=== PATIENT | male | born 1965 | race Caucasian/White ===

== ENCOUNTER 2018-11-09 17:46 | Emergency (ER) | payer BC ==
[2018-11-09 18:05] VITALS: RESP 18
--- NOTE | 2018-11-09 18:23 | ED ---
General Adult HPI - General Chief complaint: Extremity Problem,Nontraumatic Stated complaint: Foot pain Time Seen by Provider: 11/09/18 18:09 Source: patient, RN notes reviewed Mode of arrival: ambulatory Limitations: no limitations - History of Present Illness Initial comments: Chief complaint and history of present illness this is a 53-year-old male r eports when he awakened today he had pain to his right mid foot. Pain when he walks. Does not remember any specific injury. He does state that he would did a lot of dancing during the pelvic crawl yesterday. To his knowledge he had no direct injury. - Related Data Home Medications Medication Instructions Recorded Confirmed Naproxen Sodium [Aleve] 440 mg PO Q8HR PRN 11/09/18 11/09/18 Previous Rx's Medication Instructions Recorded Ibuprofen [Motrin] 600 mg PO Q6HR PRN #20 tab 11/09/18 Allergies Allergy/AdvReac Type Severity Reaction Status Date / Time No Known Allergies Allergy Verified 11/09/18 19:02 Review of Systems ROS Statement: Those systems with pertinent positive or pertinent negative responses have been documented in the HPI. Patient denies any other problems no headache chest pain shortness breath GI/ problems denies any neuro deficits. All systems were otherwise reviewed. The patient did not get a flu shot this year. Otherwise his immunizations are up-to-date. Patient denies any chronic medical problems. Surgery; he's had an umbilical hernia repair, left anterior cruciate ligament repair. Patient denies smoking. Drinks alcohol socially. He does have increased walking on the job. ROS Other: All systems not noted in ROS Statement are negative. Past Medical History Past Medical History: No Reported History History of Any Multi-Drug Resistant Organisms: None Reported Past Surgical History: Hernia Repair Past Psychological History: No Psychological Hx Reported Smoking Status: Never smoker Past Alcohol Use History: None Reported, Occasional Past Drug Use History: None Reported General Exam - General Exam Comments Initial Comments: Physical examination pertinent to the patient's visit. Patient denies any other problems other than discomfort to the mid right foot. The patient's vital signs show temperature 98.6 pulse 108 respiratory rate 18 pulse ox 90% room air blood pressure 143/94. The patient denies having history of high blood pressure and recently was seen by his doctor and his blood pressure was normal there. He was advised to get rechecked have stays high revisit with his physician as necessary. Examination of the right leg finds no pain to the hip or knee. Patient has no pain with the movement of the ankle or the toes. Mild redness of the dorsal surface. Neurovascular status to the foot is intact. Range of motion is near normal. Palpation causes mild discomfort. Standing causes pain to the mid foot. No evidence of any cellulitis. No athlete's foot, general foot exam otherwise normal. Significant complaint of pain with standing and ambulating. Limitations: no limitations Course Vital Signs 11/09/18 17:57 Temperature 98.6 F Pulse Rate 108 H Respiratory 18 Rate Blood Pressure 143/94 O2 Sat by Pulse 98 Oximetry Medical Decision Making - Medical Decision Making Medical decision making; this is a 53-year-old male with a complaint of pain to his right foot after a night of dancing and pub crawl. Cannot think of any specific direct injury. X-ray of the right foot was done and 3 views. Reviewed by radiologist. His findings are; metatarsals are intact. I see no fracture dislocation. There are no erosions. Joint spaces are fairly normal. There are plantar and Achilles calcaneal spurs. Impression negative right foot. Calcaneal spurring noted. Final impression negative right foot exam. Calcaneus burning noted. As read by Dr. Parkinson. The patient will be advised to wear snug fitting shoe laces well. Placed on ibuprofen 6R milligrams every 6 hours advised taken with food. Keep elevated. Repeat x-ray in 7 days if pain still continues is a possibility of an occult fracture. Also the patient be referred on his family physician and on-call orthopedic surgeon. We did discuss ligamentous strain and injury and m usculoskeletal strain. Disposition Clinical Impression: Repetitive strain injury of right foot Disposition: HOME SELF-CARE Condition: Fair Instructions (If sedation given, give patient instructions): Metatarsalgia (DC) Additional Instructions: Wear well footing shoe. Minimize walking. Keep elevated. Take ibuprofen 600 mg every 6 hours with food for pain. If pain persists repeat x-ray may be necessary in 7-10 days. Follow-up with family doctor and on-call orthopedic surgeon if the pain persists. Prescriptions: Ibuprofen [Motrin] 600 mg PO Q6HR PRN #20 tab PRN Reason: Pain Is patient prescribed a controlled substance at d/c from ED?: No Referrals: Juan Manuel Pina MD [Primary Care Provider] - 1-2 days Woody Contreras MD [Medical Doctor] - 1-2 days Time of Disposition: 19:10
--- NOTE | 2018-11-09 18:58 | XR ---
EXAMINATION TYPE: XR foot complete RT DATE OF EXAM: 11/09/2018 COMPARISON: NONE HISTORY: Foot pain TECHNIQUE: 3 views FINDINGS: Metatarsals are intact. I see no fracture nor dislocation. There are no erosions. Joint spa senia are fairly normal. There are plantar and Achilles calcaneal spurs. IMPRESSION: Negative right foot exam. Calcaneal spurring noted.
[2018-11-09] MEDS ORDERED: IBUPROFEN 600 MG STARTER PACK 4 TAB BTL PO STA (19:09)
[2018-11-09 19:22] VITALS: BP 133/75; PULSE 77; TEMP 97.7
== END 2018-11-09 19:22 | disposition home or self-care (01) ==
LOC: SUPCPDRO 17:46 → EC 17:46
DX: S96.911A Strain of unspecified muscle and tendon at ankle and foot level, right foot, initial encounter (principal); M77.31 Calcaneal spur, right foot; X50.3XXA Overexertion from repetitive movements, initial encounter; Y93.41 Activity, dancing
CPT/HCPCS: 99283